=== PATIENT | male | born 1960 | race Caucasian/White ===

== ENCOUNTER → 2020-09-25 | Outpatient (CLI) | payer OTHER | LOC: KOH-I 14:10 | DX: R26.0 Ataxic gait (principal); R90.89 Other abnormal findings on diagnostic imaging of central nervous system | CPT/HCPCS: 70551 ==

== ENCOUNTER → 2021-03-05 | Outpatient (CLI) | payer OTHER | LOC: HEART 5 08:00 | DX: R07.9 Chest pain, unspecified (principal) | CPT/HCPCS: 78452; A9502; J2785 ==

== ENCOUNTER → 2021-11-21 | Outpatient (CLI) | payer OTHER | LOC: KOH-I 09:13 | DX: K74.60 Unspecified cirrhosis of liver (principal); K76.0 Fatty (change of) liver, not elsewhere classified | CPT/HCPCS: 76705 ==

== ENCOUNTER 2022-01-30 15:00 | Emergency (ER) | payer OTHER ==
[2022-01-30 15:29] LABS: HEMOGLOBIN 12.1 gm/dl (14.0-17.5); RED BLOOD COUNT 3.79 M/UL (4.20-5.50); WHITE BLOOD COUNT 7.7 K/UL (4.5-11.0)
[2022-01-30 15:51] LABS: BUN/CREATININE RATIO 10 (0-10)
[2022-01-30] MEDS ORDERED: HYDROCODON-ACE1 EAC4 PO (18:12)
== END 2022-01-30 18:25 | disposition home or self-care (01) ==
LOC: ER1 15:00
DX: M54.50 Low back pain, unspecified (principal); I10 Essential (primary) hypertension; F17.210 Nicotine dependence, cigarettes, uncomplicated
CPT/HCPCS: 71045; 72100; 80053; 81001; 82550; 82553; 83605; 83690; 84484; 85025; 93005; 99284

== ENCOUNTER → 2022-02-01 | Outpatient (CLI) | payer OTHER ==
[~2022-02-01] MED LIST: HYDROCODON-ACE1 EAC4 PO
== END ==
LOC: KOH-I 08:37
DX: R10.84 Generalized abdominal pain (principal)
CPT/HCPCS: 76700